=== PATIENT | male | born 1980 | race Caucasian/White ===

== ENCOUNTER 2016-08-19 11:16 | Emergency (ER) | END 2016-08-19 14:37 | disposition home or self-care (01) | DX: R10.84 Generalized abdominal pain (principal); R11.2 Nausea with vomiting, unspecified; F17.210 Nicotine dependence, cigarettes, uncomplicated; R40.2142 Coma scale, eyes open, spontaneous, at arrival to emergency department; R40.2252 Coma scale, best verbal response, oriented, at arrival to emergency department; R40.2362 Coma scale, best motor response, obeys commands, at arrival to emergency department; Z79.82 Long term (current) use of aspirin | CPT/HCPCS: 36415; 74176; 80053; 81003; 83690; 85025; 96374; 96375; 99285; J1885; J2405 ==

== ENCOUNTER 2017-01-29 12:05 | Emergency (ER) | payer OTHER ==
[~2017-01-29] VITALS: Ht 172.7 cm; Wt 103.0 kg
[~2017-01-29 12:05] MED LIST: LOPE2CAP PO; ONDA4TAB14 PO
[2017-01-29 12:08] VITALS: Ht 172.7 cm; Wt 103.0 kg
[2017-01-29] MEDS ORDERED: BEN50 PO (14:26)
[2017-01-29] MEDS ORDERED: HC30CR25 TOP (14:26)
--- NOTE | 2017-01-29 15:20 | ERD ---
ER Documentation Chief Complaint Date/Time DATE: 01/29/17 TIME: 15:12 Chief Complaint RASH X 4 DAYS HPI 36 yr old male complaining of rash around ankles. Patient got rash around ankles after being in TJ. Has not used any medication on rash. Described rash as itchy. No fevers. has similar rash. No swelling or pain around ankles. ROS All systems reviewed and are negative except as per history of present illness. Medications Home Meds Active Scripts Hydrocortisone* Topical (Hydrocortisone* Topical) 2.5%-28.3 Gm Cream..g., 1 APPLIC TOP BID, #1 TUB Prov:KENTRELL WHITTINGTON PA-C 01/29/17 Diphenhydramine Hcl* (Benadryl*) 50 Mg Cap, 50 MG PO Q6H Y for ITCHING/RASH, # 30 CAP Prov:KENTRELL WHITTINGTON PA-C 01/29/17 Ondansetron (Ondansetron Odt) 4 Mg Tab.rapdis, 4 MG PO Q6H Y for NAUSEA AND/OR VOMITING, #10 TAB Prov:ANGUS LINN MD 08/19/16 Loperamide Hcl* (Imodium*) 2 Mg Capsule, 2 MG PO .AFTER EA LOOSE BM Y for DIARRHEA, #10 TAB Prov:ANGUS LINN MD 08/19/16 Allergies Allergies: Coded Allergies: No Known Allergy (Unverified , 01/29/17) PMhx/Soc Medical and Surgical Hx: pt denies Medical Hx, pt denies Surgical Hx History of Surgery: Yes (appendix removed) Anesthesia Reaction: No Hx Neurological Disorder: No Hx Respiratory Disorders: No Hx Cardiac Disorders: Yes (Hx of [place]) Hx Psychiatric Problems: No Hx Miscellaneous Medical Probl: No Hx Alcohol Use: No Hx Substance Use: No Hx Tobacco Use: No Smoking Status: Never smoker Physical Exam Vitals Vital Signs Date Time Temp Pulse Resp B/P Pulse Ox O2 Delivery O2 Flow Rate FiO2 01/29/17 12:08 98.0 58 18 140/75 98 Physical Exam GENERAL: The patient is well-appearing, well-nourished, in no acute distress CHEST: Clear to auscultation bilaterally. There are no rales, wheezes or rhonchi. HEART: Regular rate and rhythm. No murmurs, clicks, rubs or gallops. No S3 or S4. EXTREMITIES: Equal pulses bilaterally. There is no peripheral clubbing, cyanosis or edema. No focal swelling or erythema. Full range of motion. Grossly neurovascularly intact. NEUROLOGIC: Alert and oriented. Cranial nerves II through XII intact. Motor strength in all 4 extremities with 5 out of 5 strength. Sensation grossly intact. Normal speech and gait. Babinski negative. DTR 2+ throughout. SKIN: small erythematous papules around ankles. No pustules. No lymph streaking. No parasitic infection. Procedures/MDM MDM: 36 yr old male complaining of rash around ankles x 2 days. I have low suspicion for acute bacterial infection. Low suspicion for parasitic infection. Patient likely sustained bug bites while in and will be given supportive medication. I have low suspicion for deep infection. Patient is given strict ER precautions and told to follow up with primary doctor in 1-2 days for close evalution. Departure Diagnosis: Primary Impression: Rash Condition: Stable Patient Instructions: Insect Bite Referrals: [facility] YOU HAVE RECEIVED A MEDICAL SCREENING EXAM AND THE RESULTS INDICATE THAT YOU DO NOT HAVE A CONDITION THAT REQUIRES URGENT TREATMENT IN THE EMERGENCY DEPARTMENT. FURTHER EVALUATION AND TREATMENT OF YOUR CONDITION CAN WAIT UNTIL YOU ARE SEEN IN YOUR DOCTORS OFFICE WITHIN THE NEXT 1-2 DAYS. IT IS YOUR RESPONSIBILITY TO MAKE AN APPOINTMENT FOR FOLOW-UP CARE. IF YOU HAVE A PRIMARY DOCTOR --you should call your primary doctor and schedule an appointment IF YOU DO NOT HAVE A PRIMARY DOCTOR YOU CAN CALL OUR PHYSICIAN REFERRAL HOTLINE AT IF YOU CAN NOT AFFORD TO SEE A PHYSICIAN YOU CAN CHOSE FROM THE FOLLOWING [facility] [address] [facility] [address] [facility] [facility] [address] [facility] [address] [facility] [address] [facility]. [facility]. [address] Additional Instructions: FOLLOW UP WITH YOUR PRIMARY CARE PHYSICIAN TOMORROW.Return to this facility if you are not improving as expected. KENTRELL WHITTINGTON PA-C Jan 29, 2017 15:20
== END 2017-01-29 14:45 | disposition home or self-care (01) ==
LOC: FTE 12:05
DX: R21 Rash and other nonspecific skin eruption (principal)
CPT/HCPCS: 99283

== ENCOUNTER 2017-02-05 10:52 | Emergency (ER) | payer OTHER ==
[~2017-02-05] VITALS: Ht 180.3 cm; Wt 102.0 kg
[~2017-02-05 10:52] MED LIST changes: +BEN50 PO; +HC30CR25 TOP
[2017-02-05 10:54] VITALS: Ht 180.3 cm; Wt 102.0 kg
[2017-02-05] MEDS ORDERED: MED4DP PO (11:49)
[2017-02-05] MEDS ORDERED: HC30CR25 TOP (11:50)
[2017-02-05] MEDS ORDERED: D-ME473S18 PO (11:50)
[2017-02-05] MEDS ORDERED: NASO17 NASAL (11:51)
--- NOTE | 2017-02-05 12:15 | ERD ---
ER Documentation Chief Complaint Date/Time DATE: 02/05/17 TIME: 12:13 Chief Complaint cough for 1 week with nasal congestion no respiratory distress HPI This is a 36-year-old male that presents to the ER with a cough for the last week. Patient states he also has a lot of nasal congestion is also complaining of multiple bug bites all over his body. His daughter and are sick with similar symptoms and also have bug bites. Patient denies any chest pain, shortness of breath. He has not had any fevers or chills. ROS 12 point review of systems was done, all negative except per HPI. Medications Home Meds Active Scripts Mometasone Furoate* (Nasonex*) 50 Mcg/[place] - 17 Gm [place].pump, 1 SPRAY NASAL BID for 5 Days, #1 BOTTLE IN EACH NOSTRIL Prov:ADRIAN LISA 02/05/17 Hydrocortisone* Topical (Hydrocortisone* Topical) 2.5%-28.3 Gm Cream..g., 1 APPLIC TOP BID, #1 TUB Prov:ADRIAN LISA 02/05/17 Dextromethorphan Hb-Promethazine Hcl (Promethazine DM Syrup) 473 Ml Syrup, 10 ML PO Q6H Y for COUGH, #4 OZ Prov:ADRIAN LISA 02/05/17 Methylprednisolone* (Medrol* DOSE PACK) 4 Mg/Dose-Pack Tab.ds.pk, 4 MG PO . DIRECTED for 6 Days, PACKET Prov:ADRIAN LISA 02/05/17 Hydrocortisone* Topical (Hydrocortisone* Topical) 2.5%-28.3 Gm Cream..g., 1 APPLIC TOP BID, #1 TUB Prov:KENTRELL WHITTINGTON PA-C 01/29/17 Diphenhydramine Hcl* (Benadryl*) 50 Mg Cap, 50 MG PO Q6H Y for ITCHING/RASH, # 30 CAP Prov:KENTRELL WHITTINGTON PA-C 01/29/17 Ondansetron (Ondansetron Odt) 4 Mg Tab.rapdis, 4 MG PO Q6H Y for NAUSEA AND/OR VOMITING, #10 TAB Prov:ANGUS LINN MD 08/19/16 Loperamide Hcl* (Imodium*) 2 Mg Capsule, 2 MG PO .AFTER EA LOOSE BM Y for DIARRHEA, #10 TAB Prov:ANGUS LINN MD 08/19/16 Allergies Allergies: Coded Allergies: No Known Allergy (Unverified , 02/05/17) PMhx/Soc History of Surgery: Yes (appendix removed) Anesthesia Reaction: No Hx Neurological Disorder: No Hx Respiratory Disorders: No Hx Cardiac Disorders: Yes ([place]) Hx Psychiatric Problems: No Hx Miscellaneous Medical Probl: No Hx Alcohol Use: No Hx Substance Use: No Hx Tobacco Use: No Physical Exam Vitals Vital Signs Date Time Temp Pulse Resp B/P Pulse Ox O2 Delivery O2 Flow Rate FiO2 02/05/17 10:54 98.6 73 18 140/79 97 Physical Exam CGENERAL: The patient is well-developed, well-nourished, in no acute distress. NECK: Cervical spine is non tender with no step off. Supple, no nuchal rigidity HEENT: Atraumatic. Pupils equal, round and reactive to light. Extraocular muscles are grossly intact. Conjunctivae pink, no discharge. Bilateral tympanic membranes are clear with no evidence of erythema, effusion or dulling of the light reflex. Tonsilar erythema with no exudates or uvular deviation. Clear rhinorrhea. RESPIRATORY: Clear to auscultation bilaterally. There are no rales, wheezes or rhonchi. HEART: Regular rate and rhythm. No murmurs, clicks, rubs or gallops. EXTREMITIES: No clubbing or cyanosis. Full range of motion. Grossly neurovascularly intact. NEUROLOGIC: Alert and oriented. Cranial nerves II through XII are intact. SKIN: There is no rash. The skin is warm and dry. Procedures/MDM Differential diagnosis includes but is not limited to; Viral URI, allergic rhinitis, bronchitis, pertussis,pneumonia. This is likely viral in etiology. Clinical suspicion for pneumonia is low as patient appears well, is not hypoxic or in any respiratory distress. Additionally, patients physical examination is benign. Patient will be sent home with a Medrol Dosepak, Flonase, promethazine and hydrocortisone cream for his bug bites which are itchy. At this time there is no evidence of affected by bites. Plan was discussed with patient they understand and agree. Patient needs to follow up with PCP in 1-2 days or return to ER sooner if symptoms worsen. Departure Diagnosis: Primary Impression: Bronchitis Condition: Stable Patient Instructions: Bronchitis, No Antibiotic (Adult) Additional Instructions: Call your primary care doctor TOMORROW for an appointment during the next 1-2 days.See the doctor sooner or return here if your condition worsens before your appointment time. ADRIAN LISA Feb 05, 2017 12:15
[2017-02-15] MEDS ORDERED: IBUP-1542 PO (05:32)
[2017-02-15] MEDS ORDERED: ORPH100T PO (05:32)
== END 2017-02-05 12:23 | disposition home or self-care (01) ==
LOC: FTE 10:52
DX: J40 Bronchitis, not specified as acute or chronic (principal)
CPT/HCPCS: 99284

== ENCOUNTER 2017-02-15 04:14 | Emergency (ER) | END 2017-02-15 08:20 | disposition left against medical advice (07) | DX: M54.5 Low back pain (principal) | CPT/HCPCS: 72100; 73510; Z7610 ==

== ENCOUNTER 2017-02-27 17:47 | Emergency (ER) | payer OTHER ==
[~2017-02-27] VITALS: Ht 172.7 cm; Wt 111.5 kg
[~2017-02-27 17:47] MED LIST changes: +D-ME473S18 PO; +IBUP-1542 PO; +MED4DP PO; +NASO17 NASAL; +ORPH100T PO
[2017-02-27 17:55] VITALS: Ht 172.7 cm; Wt 111.5 kg
[2017-02-27] MEDS ORDERED: DEXAMETHASONE 10 MG/ML 1 ML INJ PO ONE (19:30)
--- NOTE | 2017-02-27 20:08 | RADRPT ---
PROCEDURE: Chest x-ray CLINICAL INDICATION: Cough TECHNIQUE: Chest single view COMPARISON: 04/17/2016 FINDINGS: The heart is normal in size. The pulmonary vessels are normal in caliber. The lungs are clear. Th e costophrenic angles are sharp. The visualized bony thorax is unremarkable. IMPRESSION: No acute cardiopulmonary disease. RPTAT: HH .Richie Sanders MD, Date Time Electronically viewed and signed by .Richie Sanders MD, on 02/27/2017 20:07 .W/
--- NOTE | 2017-02-27 20:10 | ERD ---
ER Documentation Chief Complaint Date/Time DATE: 02/27/17 TIME: 20:03 Chief Complaint cough and back pain x 1 week HPI End is a 36-year-old male who presents to the ED with nonproductive cough 1 month. Denies chest pain or shortness of breath. Denies leg pain or leg swelling. States that he took prednisone 2 weeks ago however he still has the cough. He also complains of itchiness on his legs. Denies recent travel. Denies change in hygiene products. Denies headache or dizziness. Denies recent surgery. No other complaints. ROS All systems reviewed and are negative except as per history of present illness. Medications Home Meds Active Scripts Triamcinolone Acetonide (Triamcinolone Acetonide) 0.1% - 15 Gm Cream.gm., 1 APPLIC TOP BID, #2 TUB Prov:GRACE WALTON PA-C 02/27/17 Permethrin* (Elimite*) 5% Cr, 1 APPLIC TOP ONCE for 1 Day, TUB Prov:GRACE WALTON PA-C 02/27/17 Azithromycin* (Zithromax*) 250 Mg Tablet, 250 MG PO .ZPACK DIRECTED, #6 TAB TAKE 500 MG (2 TABS) THE FIRST DAY THEN 250 MG (1 TAB) DAYS 2-5 Prov:GRACE WALTON PA-C 02/27/17 Orphenadrine Citrate (Norflex) 100 Mg Tablet.sa, 100 MG PO BID for 7 Days, TAB.SA Prov:ADRIAN LISA 02/15/17 Ibuprofen* (Motrin*) 600 Mg Tab, 600 MG PO Q6, #30 TAB Prov:ADRIAN LISA 02/15/17 Mometasone Furoate* (Nasonex*) 50 Mcg/[place] - 17 Gm [place].pump, 1 SPRAY NASAL BID for 5 Days, #1 BOTTLE IN EACH NOSTRIL Prov:ADRIAN LISA 02/05/17 Hydrocortisone* Topical (Hydrocortisone* Topical) 2.5%-28.3 Gm Cream..g., 1 APPLIC TOP BID, #1 TUB Prov:ADRIAN LISA 02/05/17 Dextromethorphan Hb-Promethazine Hcl (Promethazine DM Syrup) 473 Ml Syrup, 10 ML PO Q6H Y for COUGH, #4 OZ Prov:MARIA L,ADRIAN C 02/05/17 Methylprednisolone* (Medrol* DOSE PACK) 4 Mg/Dose-Pack Tab.ds.pk, 4 MG PO . DIRECTED for 6 Days, PACKET Prov:ADRIAN LISA 02/05/17 Hydrocortisone* Topical (Hydrocortisone* Topical) 2.5%-28.3 Gm Cream..g., 1 APPLIC TOP BID, #1 TUB Prov:KENTRELL WHITTINGTON PA-C 01/29/17 Diphenhydramine Hcl* (Benadryl*) 50 Mg Cap, 50 MG PO Q6H Y for ITCHING/RASH, # 30 CAP Prov:KENTRELL WHITTINGTON PA-C 01/29/17 Ondansetron (Ondansetron Odt) 4 Mg Tab.rapdis, 4 MG PO Q6H Y for NAUSEA AND/OR VOMITING, #10 TAB Prov:ANGUS LINN MD 08/19/16 Loperamide Hcl* (Imodium*) 2 Mg Capsule, 2 MG PO .AFTER EA LOOSE BM Y for DIARRHEA, #10 TAB Prov:ANGUS LINN MD 08/19/16 Allergies Allergies: Coded Allergies: No Known Allergy (Unverified , 02/05/17) PMhx/Soc History of Surgery: Yes (appendix removed) Anesthesia Reaction: No Hx Neurological Disorder: No Hx Respiratory Disorders: No Hx Cardiac Disorders: Yes ([place]) Hx Psychiatric Problems: No Hx Miscellaneous Medical Probl: No Hx Alcohol Use: No Hx Substance Use: No Hx Tobacco Use: No Smoking Status: Never smoker FmHx Family History: No coronary disease, No diabetes, No other Physical Exam Vitals Vital Signs Date Time Temp Pulse Resp B/P Pulse Ox O2 Delivery O2 Flow Rate FiO2 02/27/17 17:55 98.9 95 18 164/81 97 Physical Exam GENERAL: Well-developed, well-nourished male. Appears in no acute distress. HEAD: Normocephalic, atraumatic. EYES: Pupils are equally reactive bilaterally. EOMs grossly intact. No conjunctival erythema. ENT: Moist mucous membranes. No uvula deviation. No kissing tonsils. No exudates. NECK: Supple. No lymphadenopathy or thyromegaly. No meningismus. negative kernig. negative brudinski. LUNG: Clear to auscultation bilaterally. No rhonchi, wheezing, rales or coarse breath sounds. HEART: Regular rate and rhythm. No murmurs, rubs or gallops. BACK: No midline tenderness. no spinal tenderness. Extremities: Equal pulses bilaterally. No peripheral clubbing, cyanosis or edema. No unilateral leg swelling. NEUROLOGIC: Alert and oriented. Moving all four extremities. 5/5 strength in all extremities. Normal speech. Steady gait. SKIN: Normal color. Warm and dry. multiple excoriated lesions on bilateral legs. no warmth, induration. Capillary refill < 2 seconds Results 24 hrs Current Medications Medications (Trade) Dose Ordered Sig/[place] Route PRN Reason Start Time Stop Time Status Last Admin Dose Admin Dexamethasone (Decadron) 10 mg ONCE ONCE PO 02/27/17 19:30 02/27/17 19:31 DC 02/27/17 19:34 Procedures/MDM ER COURSE: I kept the patient and/or family informed of laboratory and diagnostic imaging results throughout the emergency room course. MEDICAL DECISION MAKING: This is a 36 year old male who presents with cough and itchy legs. Vital signs were reviewed. Patient is afebrile. Patient is not hypoxic. Patient is not toxic or ill appearing. X rays As read by radiologist is unremarkable. Low suspicion for pneumonia, PE, pneumothorax, ACS, epiglottitis, obstruction, TB, pertussis, meningitis, sepsis. Low suspicion for ACS, PE, AAA, dissection, DVT. Since rash is likely allergic versus insect bite versus scabies. DISCHARGE: At this time, patient is stable for discharge and outpatient management with no new complaints during the ER course. Patient was sent home with permethrin and triamcinolone cream. Patient will be discharged home with instructions to recheck for new or worsening symptoms such as fever, nausea, weakness, LOC and to follow up with primary care in the next 1-2 days. Patient was advised to return to the ER for any new or worsening symptoms. Plan was discussed and patient and/or family understands and agrees. Home instructions were given. Departure Diagnosis: Primary Impression: Cough Condition: Stable GRACE WALTON PA-C Feb 27, 2017 20:10
[2017-02-27] MEDS ORDERED: AZIT250T94 PO (20:14)
[2017-02-27] MEDS ORDERED: ELIM TOP (20:14)
[2017-02-27] MEDS ORDERED: TRIA15CR55 TOP (20:14)
== END 2017-02-27 20:25 | disposition home or self-care (01) ==
LOC: FTE 17:47
DX: R05 Cough (principal)
CPT/HCPCS: 71010; J1100; Z7502

== ENCOUNTER 2017-03-26 17:39 | Emergency (ER) | payer SELFPAY ==
[~2017-03-26] VITALS: Ht 175.3 cm; Wt 116.5 kg
[~2017-03-26 17:39] MED LIST changes: +AZIT250T94 PO; +ELIM TOP; +TRIA15CR55 TOP
[2017-03-26 17:44] VITALS: Ht 175.3 cm; Wt 116.5 kg
== END 2017-03-26 23:10 | disposition left against medical advice (07) ==
LOC: FTE 17:39
DX: Z53.21 Procedure and treatment not carried out due to patient leaving prior to being seen by health care provider (principal)

== ENCOUNTER 2017-08-13 00:19 | Emergency (ER) | END 2017-08-13 02:46 | disposition home or self-care (01) ==

== ENCOUNTER 2017-08-28 13:27 | Emergency (ER) | END 2017-08-28 16:31 | disposition home or self-care (01) ==

== ENCOUNTER 2017-09-10 17:37 | Emergency (ER) | END 2017-09-10 20:47 | disposition home or self-care (01) ==

== ENCOUNTER 2017-09-13 16:28 | Emergency (ER) | END 2017-09-13 16:52 | disposition home or self-care (01) ==

== ENCOUNTER 2018-03-07 17:05 | Emergency (ER) | END 2018-03-07 19:20 | disposition home or self-care (01) ==

== ENCOUNTER 2018-03-11 01:09 | Inpatient (IN) | END 2018-03-14 14:20 | disposition home or self-care (01) | DRG 203 ==

== ENCOUNTER 2018-09-18 18:52 | Emergency (ER) | payer SELFPAY ==
[~2018-09-18] VITALS: Ht 180.3 cm; Wt 116.0 kg
[~2018-09-18 18:52] MED LIST changes: -AZIT250T94 PO; -BEN50 PO; +Colchicine PO; -D-ME473S18 PO; -ELIM TOP; +GUAI-637 PO; -HC30CR25 TOP; +HYDR-3980 PO; +LEVO750T25 PO; -LOPE2CAP PO; -MED4DP PO; -NASO17 NASAL; -ONDA4TAB14 PO; -ORPH100T PO; -TRIA15CR55 TOP
[2018-09-18 19:01] VITALS: BP 122/60; PULSE 60; RESP 18; Ht 180.3 cm; Wt 116.0 kg
== END 2018-09-18 21:50 | disposition left against medical advice (07) ==
LOC: FTE 18:52
DX: Z53.21 Procedure and treatment not carried out due to patient leaving prior to being seen by health care provider (principal)